=== PATIENT | female | born 1950 | race Caucasian/White ===

== ENCOUNTER → 2016-11-23 | Outpatient (CLI) | payer OTHER ==
[~2016-11-23] MED LIST: CITALOPRAM HYDR10 MG PO; CRESTOR10 MG PO; ESTRADIOL TOP; LUNESTA3 MG PO; MAXZIDE-25 PO; NORCO1 TA1 PO; OXAYDO5 MG PO; OXYCONTIN CR10 MG PO; PERCOCET1 TA1 PO; ROXICODONE5 MG PO; SOMA350 MG PO; VERAPAMIL HCL180 M4 PO
--- NOTE | 2016-11-23 13:43 | DIAGNOSTIC IMAGING REPORT ---
PROCEDURE: XR CHEST 2 VIEW INDICATION: PRE OP TECHNIQUE: PA and lateral views. COMPARISON: Chest 01/05/2012 FINDINGS: Lungs are clear. Heart and mediastinum are normal. Thorax is normal. IMPRESSION: 1. Negative chest.
== END ==
LOC: XR SRH 13:09
DX: Z01.810 Encounter for preprocedural cardiovascular examination (principal); Z01.811 Encounter for preprocedural respiratory examination
CPT/HCPCS: 90001; 90004; 90074; 90100; 90155; 91004; 94060; 95059; 95150

== ENCOUNTER 2016-11-28 08:26 | Day surgery (SDC) | payer OTHER ==
--- NOTE | 2016-11-13 10:11 | HISTORY AND PHYSICAL ---
ADMITTED: 11/27/2016 CHIEF COMPLAINT: 1. Left shoulder pain. HISTORY OF PRESENT ILLNESS: The patient has had pain in her left shoulder for a number of years, but she always related it to her neck problems. She has had some chronic neck problems and had a previous neck fusion and prior diskectomy and prosthetic disk implant but the pain in the shoulder just never got better. She had a history of previous right rotator cuff repair, which she did well from and when the left shoulder continued to bother her, then she had an MRI scan. The MRI showed her to have a rotator cuff tear and some degenerative changes of the glenohumeral joint, which are relatively mild but primarily some severe degenerative changes of the acromioclavicular joint in conjunction with the rotator cuff tear so she has had continuing decline in the function of the left arm and increasing pain and says she is pretty miserable with it. She is a chronic pain patient having had back and neck problems for a number of years and is on OxyContin 10 mg a day and Percocet or [place], depending on the situation, which she takes on an almost daily basis as well p.r.n. for pain, none of which really have helped her pain much. Anti-inflammatories have not helped, physical therapy for it has not helped. She has not had an injection to it, but she said when she had her right shoulder problems that they did inject that and did not do her any good so she is really not interested in trying an injection to the left shoulder. The MRI was reviewed and it does show her to have a rotator cuff tear. The muscles show maybe some mild fatty infiltration, but generally are in good condition. She does have some mild thinning of the articular cartilage, particularly on the humeral side and maybe to a lesser degree on the glenoid side, but there is articular cartilage looks like present throughout. She does have rather severe changes of the acromioclavicular joint and she would like to have it repaired so she is being admitted for repair of the same. She had an open repair on the opposite side, did very well with that and would like to have a similar procedure on the left side. She did ask about an arthroscopic procedure and I explained to her that while I have done that, I do not think I can do as good a repair through the arthroscope and I would be more than willing to refer her to an outside facility where she can have an arthroscopic repair if she would like, but she declined this and would like to have the surgery done here, even if it means having it done open and so she will be scheduled for surgery. 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 She has had a previous spine fracture. She says it just occurred with relatively minor trauma. She was bending over to lift something relatively heavy. She does suffer from coronary artery disease and has had some chest pain in the past. She suffers from also insomnia, anxiety. She has hyperlipidemia, hypertension and she has had previous surgery for hysterectomy, for right rotator cuff repair, right carpal tunnel release. She has had neck fusion. She has had LASIK surgery, and cataract surgery in the eyes and she has had low back surgery on multiple occasions as well. MEDICATIONS: 1. Verapamil SR, she takes 180 mg a day. 2. Triamterene/hydrochlorothiazide 37.5/25 which she takes on a daily basis. 3. Soma 350 mg, she takes p.r.n. for muscle spasms. 4. Percocet 5/325 she takes 1 or 2 every 6 hours p.r.n. for pain. 5. OxyContin 10 mg, she takes daily. 6. [place] 5/325 she will occasionally take for headaches. 7. Lunesta 3 mg, which she takes in the evening for sleep. 8. Estradiol 0.075 mg daily. 9. Crestor 10 mg daily. 10. Citalopram 20 mg daily. ALLERGIES: 1. MORPHINE she was told that it caused her some swelling. She says that occurred after she had a surgery a number of years ago and she always has a little bit of swelling after surgery, so she is not sure if she truly was allergic to it, but that is listed in her allergies. There is some question whether she may have some mild allergic response to morphine. SOCIAL HISTORY: She does have a history of tobacco smoking, but quit a number of years ago. FAMILY HISTORY: Unknown as she was adopted as a child. REVIEW OF SYSTEMS: Positive in that she does suffer from chronic neck and back pain. She has shoulder pain as noted above. She has had some gastrointestinal upset and has had in the past some chest pain and palpitations. PHYSICAL EXAMINATION: VITAL SIGNS: Blood pressure 130/76, her pulse is 68. Her weight is 121 pounds. 4 feet 10-1/2 inches tall. HEENT: Her head is normocephalic and atraumatic. Her eyes clear. Hearing grossly normal. The face is symmetrical. NECK: Without jugular venous distention. CHEST: Symmetrical. HEART AND LUNG: Will do when she comes into the office. EXTREMITIES: The shoulder exam, I will refer you to my clinic notes from today, but she has marked limitation in range of motion with active abduction only to 40, maybe 45 degrees at best and forward flexion about 80 degrees and extension she cannot even get back to her SI joint and she has significant pain and weakness of all range of motion. Her external rotation with the arm at the side is only to 20 degrees. She does have a stable joint with no laxity with anterior and posterior or inferior drawer testing. There is some mild crepitation that is felt sporadically as I move her through circumduction. There is tenderness over the AC joint, but the worst tenderness is over the anterolateral aspect of the acromion. LAB/IMAGING: MRI scan was reviewed and does show her to have a rotator cuff tear and acromioclavicular arthritis and some mild glenohumeral arthritis to go along with it, again with the muscles relatively preserved. IMPRESSION/PLAN: 1. Rotator cuff tear and acromioclavicular arthritis. The plan will be for the surgery as described above for distal clavicle resection, acromioplasty and open rotator cuff repair, and again I have explained to her how the surgery would be performed , where the incision would be, the risk and benefits of it and she agrees and would like to proceed as soon as possible
[~2016-11-28] VITALS: Ht 147.3 cm; Wt 54.9 kg
[~2016-11-28 08:26] MED LIST changes: -OXAYDO5 MG PO; -ROXICODONE5 MG PO
--- NOTE | 2016-11-28 12:52 | Postoperative Progress Note ---
Postop Progress Note Preoperate Diagnosis: RCT, AC arthritis, impingement, possible biceps tendonitis left [place] Postoperative Diagnosis: RCT, AC arthritis, impingement left shoulder Surgeon: Ruben Storey MD Anesthesia: General ETT Findings: RCT, AC arthritis, impingement left shoulder Procedure: Left acromioplasty, distal clavicle resection, repair of RC tear. Complications? No Condition: Stable EBL: <50cc Blood Administered: 0 Specimen(s) removed? Yes Specimen removed/disposition: Anterior inferior acromion and distal clavicle left shoulder Grafts or Implants? Yes Graft/Implant type: 5.5mm suture anchor . (See nursing notes for details of grafts/implants)
[2016-11-28] MEDS ORDERED: OXAYDO5 MG PO (12:58)
--- NOTE | 2016-11-28 13:00 | Provider's Discharge Care Plan ---
Problem, Goal, Plan Problem List 1. Rotator cuff disorder
--- NOTE | 2016-11-28 13:00 | Provider's Discharge Care Plan ---
Problem, Goal, Plan Problem List 1. Rotator cuff disorder
--- NOTE | 2016-11-28 13:22 | OPERATIVE REPORT ---
DATE OF SURGERY: 11/28/2016 SURGEON: DICK SERNA MD PREOPERATIVE DIAGNOSIS: 1. Rotator cuff tear, acromioclavicular arthritis and impingement with probable biceps tendinitis, left shoulder POSTOPERATIVE DIAGNOSIS: 1. The findings at surgery were that she had a large rotator cuff tear. There was impingement, acromioclavicular arthritis, and the biceps tendon was in good condition. PROCEDURES PERFORMED: 1. The operation proposed was open repair of the rotator cuff tear, acromioplasty, distal clavicle resection, and possible biceps tenodesis. 2. The operation performed was open acromioplasty, distal clavicle resection, rotator cuff repair. ESTIMATED BLOOD LOSS: Less than 50 mL. COMPLICATIONS: None. PATHOLOGY SPECIMEN: None although we did remove some of the bone from the inferior aspect of the acromion and distal clavicle. DESCRIPTION OF PROCEDURE: The patient was taken to the operating room, where she was given a general anesthetic, was placed in a beach chair position. The arm and shoulder and area of the base of neck were all prepped and draped in the usual sterile fashion. She had a superior incision made directly over the shoulder, carried down through subcutaneous tissue. She had the deltoid muscle split in line with its fibers, extending from the point about 1.5 cm, maybe at most 2 cm lateral to the lateral acromion and up and over the anterior tip of the acromion and over the acromioclavicular joint and over the distal clavicle for about 1.5 cm. The distal clavicle was exposed. There was no normal articular cartilage and very little articular cartilage of any kind that was present there and a fairly large inferior spur and the distal clavicle was resected, slightly obliquely removing a little bit more bone inferiorly than superiorly and then rounding and smoothing the margins with the rasp and rongeur and sealing the end with a small quantity of bone wax. The patient had an acromioplasty performed, removing the anteroinferior aspect of the acromion and smoothing the undersurface of the acromion with the rasp. The rotator cuff was inspected. She did have a fairly large rotator cuff tear as was suspected from her preoperative MRI scan. The biceps tendon was inspected. It was found to be actually in surprisingly good condition so we did not do the biceps tenodesis that I thought might be necessary, but she did have the margins of the cuff debrided sharply. The patient had the area anteriorly where the cuff inserted into the greater tuberosity of the humerus curetted with a small curette. More posteriorly, there was enough soft tissue and rotator cuff attachment remaining that we could just repair it back to soft tissue. I took a single 5.5 mm anchor, placed it in the bone of the greater tuberosity, took the limbs of the suture and placed one somewhat more anteriorly than the other, but placed 2 Filemon-Olvin type of grasping sutures and tied them down and then over sewed with more of the same suture from the anchor getting a very nice secure repair. The patient then had the deltoid muscle repaired back to the acromion using some of the same suture placed through the bone and then oversewing with some #1 Polysorb suture. Subcutaneous layer was closed with 2-0 Polysorb running suture, the subcuticular skin closure performed with 3-0 Polysorb running suture. She was injected into the area with 0.5% Marcaine, dressed with Xeroform, gauze, and then the bandages were secured in place with tape and she was placed in an arm sling, awakened and taken to the recovery room in stable condition.
--- NOTE | 2016-11-28 14:40 | DIAGNOSTIC IMAGING REPORT ---
PROCEDURE: XR SHOULDER 2 OR MORE VW-LEFT INDICATION: Post op repair rotator cuff tear TECHNIQUE: Three views. COMPARISON: Shoulder MRI dated 10/06/2016 FINDINGS: Status post AC joint resection. A screw is in place in the humeral head. No fracture or dislocation. IMPRESSION: 1. Normal postoperative changes.
[2016-11-28 16:06] VITALS: BP 111/52
== END 2016-11-28 16:09 | disposition home or self-care (01) ==
LOC: OR SRH 08:26 → SCU SRH 08:35 → OR SRH 10:15
PROVIDERS: Orthopaedic Surgery
PROC: 0RNK0ZZ Release Left Shoulder Joint, Open Approach (ICD-10-PCS; principal; 2016-11-28 10:15)
PROC: 0LM20ZZ Reattachment of Left Shoulder Tendon, Open Approach (ICD-10-PCS; principal; 2016-11-28 10:15)
DX: M75.102 Unspecified rotator cuff tear or rupture of left shoulder, not specified as traumatic (principal); M75.42 Impingement syndrome of left shoulder; M19.012 Primary osteoarthritis, left shoulder

== ENCOUNTER 2016-12-26 13:47 | Outpatient (CLI) | payer OTHER ==
[~2016-12-26 13:47] MED LIST changes: +OXAYDO5 MG PO
--- NOTE | 2016-12-26 15:16 | DIAGNOSTIC IMAGING REPORT ---
PROCEDURE: XR SHOULDER INJECTION (PRE MR) INDICATION: Left shoulder pain. Recurrent injury after rotator cuff repair. TECHNIQUE: The patient was advised of the usual risks and complications including infection, bleeding and allergy. Supine RPO position. Following sterile preparation and 1% lidocaine anesthetic, fluoroscopic guidance (2.1 minutes, 245.40 mGy) was utilized to place a 22-gauge spinal needle into the ventral left glenohumeral joint. A 10.1 mL solution (2.5 mL Isovue 200, 2.5 mL 1% lidocaine, 2.5 mL 0.5% Marcaine, 2.5 mL normal saline, 0.1 mL gadolinium) was infused. Subsequently, 2 mL 40 mg/mL Kenalog was infused and the needle was withdrawn. COMPARISON: Comparison is made to radiographs of the left shoulder on 11/28/2016. FINDINGS: Six AP views in neutral, internal and external rotation. Confirmation of intraarticular injection. There is a metal surgical anchor in the left humeral head. There is a complete rotator cuff tear with extravasation of contrast into the subacromial/subdeltoid bursa. bursa The patient tolerated the procedure reasonably well and was transferred to MRI in satisfactory condition with instructions to resume routine activity the following day, and to call for any untoward symptoms (increasing pain/swelling). IMPRESSION: 1. Successful fluoroscopically guided diagnostic/therapeutic injection of the left glenohumeral joint (pre MRI). 2. Postoperative changes (metal anchor left humeral head). 3. There is a complete rotator cuff tear. 4.. MR arthrography is pending.
--- NOTE | 2016-12-26 17:16 | DIAGNOSTIC IMAGING REPORT ---
PROCEDURE: MR UPPER EXT JOINT W/CONT-LT INDICATION: LEFT SHOULDER PAIN; POST STATUS ROATOR REPAIR TECHNIQUE: Intraarticular contrast/gadolinium injected earlier in the day. PD, FAT-SAT PD, and FAT-SAT T1 sagittal oblique images. PD, FAT-SAT PD, and FAT-SAT T1 coronal oblique images. T1, FAT-SAT T1, and gradient axial images. COMPARISON: Comparison is made to arthrogram of the left shoulder earlier in the day (12/26/2016) and noncontrast MRI of the left shoulder (10/06/2016). FINDINGS: Moderate intermittent motion require repeat sequences. Status post acromioplasty and resection of the left acromioclavicular joint with mild residual postoperative changes and metal artifact. Postoperative changes of the humeral head (metal surgical anchor consistent with prior rotator cuff repair. There is a large 2 cm full-thickness rotator cuff tear of the anterior superior rotator cuff (supraspinatus segment), proximal to the tendon insertion. This is associated with extravasation of contrast in the subacromial and subdeltoid bursa, and extending into the left acromioclavicular pseudoarthrosis. There is metal artifact and debris/loose bodies within the bursa. There is moderate thickening and tendinosis of the subscapularis and horizontal segment biceps tendon, although these structures appear intact. There is a type 3 anterior capsular attachment of the glenohumeral joint. Superior, middle, and inferior glenohumeral ligaments appear normal. Glenoid labrum appears normal and there is no evidence of labral tear. IMPRESSION: 1. Status post acromioplasty and resection of the left acromioclavicular joint. 2. Postoperative changes of the humeral head (surgical anchor) consistent with rotator cuff repair. 3. Large 2 cm full-thickness recurrent rotator cuff tear (supraspinatus segment) with extravasation of contrast in the subacromial and subdeltoid bursa, and left acromioclavicular joint (pseudoarthrosis). 4. Metal artifact and debris/loose bodies within the bursa. 5. Moderate tendinosis of the subscapularis and horizontal biceps tendon, although these structures appear intact.
== END 2016-12-26 23:00 ==
LOC: XR SRH 13:47
PROC: BP191ZZ Fluoroscopy of Left Shoulder using Low Osmolar Contrast (ICD-10-PCS; principal; 2016-12-26)
PROC: BP39YZZ Magnetic Resonance Imaging (MRI) of Left Shoulder using Other Contrast (ICD-10-PCS; 2016-12-26)
DX: M24.012 Loose body in left shoulder (principal); M75.122 Complete rotator cuff tear or rupture of left shoulder, not specified as traumatic; M75.82 Other shoulder lesions, left shoulder; Z96.612 Presence of left artificial shoulder joint

== ENCOUNTER 2017-01-19 11:22 | Outpatient (CLI) | payer OTHER | END 2017-01-19 23:00 | LOC: LAB SRH 11:22 | DX: Z01.812 Encounter for preprocedural laboratory examination (principal) | CPT/HCPCS: 90004; 90074; 90100; 95059 ==

== ENCOUNTER 2017-01-24 06:14 | Day surgery (SDC) | payer OTHER ==
--- NOTE | 2017-01-04 12:42 | HISTORY AND PHYSICAL ---
ADMITTED: 01/24/2017 CHIEF COMPLAINT: 1. Left shoulder pain. HISTORY OF PRESENT ILLNESS: The patient has had a rotator cuff tear. For full details, refer to the previous history and physical, but she had a rotator cuff tear repaired on 12/26/2016. Unfortunately, she went down in the shower following the surgery and reinjured the shoulder, had an MRI scan which showed her to have recurrence of the tear of her rotator cuff and is being readmitted for repair of the same. MEDICAL/SURGICAL HISTORY: Past medical history positive for arthritis in multiple joints. She had a previous fracture of her spine. She has coronary artery disease, insomnia, anxiety, hyperlipidemia, hypertension, and cataracts. She has had previous surgery for repair of right rotator cuff tear, right carpal tunnel release, fusion of her cervical spine, low back surgeries, LASIK eye surgery, and cataract surgery. MEDICATIONS: 1. OxyContin 10 mg daily. 2. [place] 5/325. She takes on a p.r.n. basis for headaches. 3. Lunesta 3 mg at bedtime for sleep. 4. Estradiol 0.075 mg daily. 5. Crestor 10 mg daily. 6. Percocet 5/325 she takes on a p.r.n. basis for pain. 7. Soma 350 mg, she takes q.i.d. as needed for muscle spasms. 8. Triamterene/hydrochlorothiazide 37.5/25 she takes on a daily basis. 9. Verapamil SR 180 mg daily. 10. Citalopram 20 mg daily. ALLERGIES: 1. Morphine. SOCIAL HISTORY: Positive in that she did smoke at one time, but quit many years ago. FAMILY HISTORY: Unknown. She was adopted as a child, does not know of her family history. REVIEW OF SYSTEMS: Positive for chronic neck and back pain as well as left shoulder pain. She has a history of gastrointestinal upset and peptic ulcer disease. She also has a past history chest pain and palpitations, but none at present. PHYSICAL EXAMINATION: HEENT: Shows her head to be normocephalic and atraumatic. Her eyes are clear. Hearing is grossly normal. Face is symmetrical. NECK: Without jugular venous distention. CHEST: Symmetrical. HEART AND LUNG: Exam will be done when she comes in the hospital. EXTREMITIES: For the shoulder, I will refer you to my previous clinic note. She has a well healing SABR type of anterior posterior incision directly over the left shoulder. There is no significant degree of atrophy detectable and she has no open wounds. There is no erythema, no undue warmth. No drainage at all. She has pain with any motion of the shoulder. LAB/IMAGING: MRI scan shows her to have had the resection of her distal clavicle and acromioplasty and there is a screw in place in the area of the greater tuberosity of the humerus with failure of the anterior portion of the supraspinatus tendon repair and about a 2 cm gap in the tendon. IMPRESSION: 1. Recurrent left rotator cuff tear. PLAN: For repair of the same. I have explained how the surgery will be done, exactly what we do to put another screw in, more sutures and try to suture it and get it to repair, how important it is that she be careful and to not suffer any more falls or accidents and she understands and accepts, and we will plan to do the surgery then on 01/24/2017 barring unforeseen complication or problem.
[~2017-01-24] VITALS: Ht 147.3 cm; Wt 55.1 kg
--- NOTE | 2017-01-24 06:47 | NUR ---
PRE OP INSTRUCTIONS GIVEN AND SAFETY ISSUES DISCUSSED PT AND SPOUSE HAD QUESTIONS ANSWERED PT CONFIRMED PROCEDURE PT VERIFIED SIGNATURE PT MARKED SITE PT STATED ACHES ALL OVER
--- NOTE | 2017-01-24 09:20 | NUR ---
PATIENT ARRIVED TO PACU AT 0914. SPONT RESP. AROUSABLE. VITALS STABLE. DRESSINGS TO L SHOULDER CLEAN, DRY AND INTACT. EXTREMITY ELEVATED ON PILLOW. ICE APPLIED. SLING IN PLACE. WILL CONTINUE OT MONITOR.
--- NOTE | 2017-01-24 09:25 | Postoperative Progress Note ---
Postop Progress Note Preoperate Diagnosis: Recurrent left rotator cuff tear Postoperative Diagnosis: Same Surgeon: Ruben Storey MD Anesthesia: General ETT Findings: Recuurent tear left rotator cuff Procedure: Repair left rotator cuff tear Complications? No Condition: Stable EBL: 50cc Blood Administered: 0 Specimen(s) removed? No Grafts or Implants? Yes Graft/Implant type: 2 suture anchors left shoulder . (See nursing notes for details of grafts/implants)
[2017-01-24] MEDS ORDERED: ROXICODONE5 MG PO (09:32)
--- NOTE | 2017-01-24 09:34 | Provider's Discharge Care Plan ---
Problem, Goal, Plan Problem List 1. Rotator cuff disorder
--- NOTE | 2017-01-24 09:34 | Provider's Discharge Care Plan ---
Problem, Goal, Plan Problem List 1. Rotator cuff disorder
--- NOTE | 2017-01-24 09:51 | OPERATIVE REPORT ---
DATE OF SURGERY: SURGEON: DICK SERNA MD PREOPERATIVE DIAGNOSIS: 1. Recurrent tear of the left rotator cuff POSTOPERATIVE DIAGNOSIS: 1. Recurrent tear of the left rotator cuff PROCEDURE PERFORMED: The operation proposed was repair of left rotator cuff tear and the operation performed the same. ESTIMATED BLOOD LOSS: 50 mL. COMPLICATIONS: None. PATHOLOGY SPECIMEN: None. SURGICAL TECHNIQUE: The patient was taken to the operating room, where she was given a general anesthetic and then placed in a beach chair position. The arm and shoulder and base of the neck were all prepped and draped in the usual sterile fashion. I made the same anterior, posterior saber type of incision over the superior aspect of the shoulder, carried down through subcutaneous tissue. The deltoid muscle and capsule of the acromioclavicular joint all healed perfectly and I incised right at the anterior edge of the acromion and felt along the underside of the acromion and it was nice and smooth and freed up some adhesions on the underside of the deltoid muscle and exposed the superior aspect of the rotator cuff, which had torn completely loose from its attachments. Again, she had a very large tear extending from the bicipital groove anteriorly, posteriorly to the teres attachment and I curetted along the attachment side along the greater tuberosity of the humerus and down to bleeding bone and then put 2 large suture anchors just lateral to the greater tuberosity and the sutures from these were used to repair the rotator cuff. Once again, the primary sutures were Filemon-Olvin type of grasping sutures. The 4 sutures from the anchors were all placed in this fashion and then we used more of the same suture and oversewed the repair with [id number] sutures as well and with this a good solid repair was performed and no tendency to gap or to displacement when I moved it through a full range of motion. The deltoid incision, which is extended down to a point 2.5 cm lateral to the lateral margin of the acromion was repaired with [id number] suture and actually left over suture from the suture anchors after we had placed the sutures in the rotator cuff and then clipped off the remaining portion of the sutures used to repair the deltoid. We got a nice solid repair there, and then closed the subcutaneous layer with 2-0 Polysorb running suture and 3-0 Polysorb running subcuticular skin closure. The incision was dressed with Xeroform and ABD pad and this was taped securely in place, placed in an arm sling and then awakened and taken to the recovery room. She is in stable condition.
--- NOTE | 2017-01-24 09:52 | NUR ---
X RAYS COMPLETE. PATIENT'S VITALS REMAIN STABLE. WILL CONTINUE TO MONITOR
--- NOTE | 2017-01-24 10:31 | NUR ---
PT RETURNED FROM PACU LEFT ARM IN SLING DRESSING DRY AND INTACT CAP REFILL LESS THAN3 SEC ICE TO SHOULDER
--- NOTE | 2017-01-24 10:37 | DIAGNOSTIC IMAGING REPORT ---
PROCEDURE: XR SHOULDER 2 OR MORE VW-LEFT INDICATION: Post op TECHNIQUE: Three views. COMPARISON: Left shoulder 11/28/2016 FINDINGS: Status post AC joint resection. Three screws are in place in the humeral head. No fracture or dislocation. IMPRESSION: 1. Three screws in the humeral head.
--- NOTE | 2017-01-24 11:28 | NUR ---
. PT STATED WANTED TO GO HOME AND SLEEP IN OWN BED PAIN AROUND 6.5 TO 7. DOWN SLIGHTLY AFTER PO MED REVIEWED DISCHARGE INSTRUCTIONS VERBAL AND WRITTEN PT AND SPOUSE EXPRESSED UNDERSTANDING PT RECITED BACK WHAT TO DO WITH DRESSING AND TO KEEP ARM IN SLING AT ALL TIMES. PT DISCHARGED PER WC ACCOMPANIED BY SPOUSE
[2017-01-24 11:33] VITALS: BP 116/55
== END 2017-01-24 11:31 | disposition home or self-care (01) ==
LOC: SCU SRH 06:14 → OR SRH 06:14
PROVIDERS: Orthopaedic Surgery
PROC: 0LM20ZZ Reattachment of Left Shoulder Tendon, Open Approach (ICD-10-PCS; principal; 2017-01-24 07:30)
DX: S46.012A Strain of muscle(s) and tendon(s) of the rotator cuff of left shoulder, initial encounter (principal); W18.2XXA Fall in (into) shower or empty bathtub, initial encounter